=== PATIENT | female | born 1995 | race African-American/Black ===

== ENCOUNTER 2017-02-19 15:29 | Emergency (ER) | payer SELFPAY ==
[~2017-02-19] VITALS: Ht 154.9 cm; Wt 65.0 kg
[~2017-02-19 15:29] MED LIST: IPRA0.03
[2017-02-19 15:31] VITALS: BP 130/80; PULSE 66; RESP 20; TEMP 98.3; O2SAT 99
--- NOTE | 2017-02-19 15:35 | PD ---
Physical Exam Date Seen by Provider: Feb 19, 2017 Time Seen by Provider: 15:34 Narrative 21 yo female here for possible UTI. Having dysuria, polyuria and urgency for a couple of days. no other symptoms. No vaginal discharge or . Vitals are stable in triage. Awaiting bed placement. Data Data Last Documented VS Vital Signs Date Time Temp Pulse Resp B/P Pulse Ox O2 Delivery O2 Flow Rate FiO2 02/19/17 15:31 98.3 66 20 130/[address] [facility] Medical Record Reviewed: Yes Supervised Visit with [facility]: Rogerio Monroe Feb 19, 2017 15:35
[2017-02-19 16:38] LABS: BACTERIA, URINE OCC /hpf; BLOOD, URINE TRACE (NEG); COMMENT (UR) CULTURE INDICATED; CULTURE IF INDICATED CULTURE INDICATED; GLUCOSE,URINE NEG (NEG); KETONE, URINE NEG (NEG); MUCUS URINE FEW /lpf (OCC); NITRITE,URINE NEG (NEG); PH, URINE 6.5 (5.0-8.5); SQUAMOUS EPITHELIAL CELL URINE 14 /hpf (0-5); URINE COLOR YELLOW (YELLW/STRAW)
[2017-02-19] MEDS ORDERED: MACR100C2 PO (16:55)
--- NOTE | 2017-02-19 16:55 | PD ---
HPI Chief Complaint: Complaint Time Seen by Provider: 15:54 Travel History International Travel<30 days: No Contact w/Intl Traveler<30days: No Traveled to known affect area: No History of Present Illness HPI This is a 21-year-old woman who presents to the emergency department complaining of burning when she urinates and irritation for the past week or so. She initially a little bit of vaginal discharge and went to the health Department where she got tested for STDs and was reportedly negative. She still having symptoms and she thinks she may have a bladder infection so she came to the emergency department. She states she's had bladder infections before. Her last menstrual cycle was February 11. She is having a little bit of abdominal pain. She had some subjective chills a couple days ago. She is sexually active one male partner. He has no symptoms. History Past Medical History Medical History: Denies Significant Hx Influenza Vaccination: Yes : 2 Para: 2 Social History Alcohol Use: No Tobacco Use: No Allergies-Medications (Allergen,Severity, Reaction): Coded Allergies: No Known Allergies (Unverified , 06/18/16) Reported Meds & Prescriptions Reported Meds & Active Scripts Active Ipratropium [place] 0.03 % Spr 2 [place] NA TID PRN Review of Systems Except as stated in HPI: all other systems reviewed are Neg Physical Exam Narrative GENERAL: Well-appearing 21-year-old woman, no acute distress. SKIN: Focused skin assessment warm/dry. HEAD: Atraumatic. Normocephalic. CARDIOVASCULAR: Regular rate and rhythm. No murmur appreciated. RESPIRATORY: No accessory muscle use. Clear to auscultation. Breath sounds equal bilaterally. GASTROINTESTINAL: Abdomen soft, non-tender, nondistended. Hepatic and splenic margins not palpable. No CVA tenderness to percussion. MUSCULOSKELETAL: No obvious deformities. Data Data Last Documented VS Vital Signs Date Time Temp Pulse Resp B/P Pulse Ox O2 Delivery O2 Flow Rate FiO2 02/19/17 15:31 98.3 66 20 130/80 99 Room Air Orders Urinalysis - C+S If Indicated (02/19/17 15:35) Ed Urine Pregnancytest Poc (02/19/17 15:35) Urine Culture (02/19/17 15:20) Labs Laboratory Tests Test 02/19/17 15:20 Urine Color YELLOW Urine Turbidity HAZY Urine pH 6.5 Urine Specific [place] 1.012 Urine Protein TRACE mg/dL Urine Glucose (UA) NEG mg/dL Urine Ketones NEG mg/dL Urine Occult Blood TRACE Urine Nitrite NEG Urine Bilirubin NEG Urine Urobilinogen LESS THAN 2.0 MG/DL Urine Leukocyte Esterase LARGE Urine RBC 6 /hpf Urine WBC 19 /hpf Urine Squamous Epithelial 14 /hpf Cells Urine Amorphous Sediment RARE Urine Bacteria OCC /hpf Urine Mucus FEW /lpf Microscopic Urinalysis Comment CULTURE INDICATED MDM Medical Decision Making Medical Screen Exam Complete: Yes Emergency Medical Condition: Yes Interpretation(s) UA with pyuria Differential Diagnosis UTI, pyelonephritis, urethritis, cervicitis, other Narrative Course Medical decision making Is a 21-year-old woman who presents to the emergency department complaining of burning with urination. Workup for STDs was negative. Urinalysis shows pyuria. Suggest treatment for UTI. Diagnosis Primary Impression: UTI (urinary tract infection) Additional Instructions: Take antibiotics as prescribed. Follow-up with her primary doctor in 2-3 days. Return to the emergency department for any new or worsening symptoms. Med/Other Pt SpecificInfo: Prescription(s) given Scripts Nitrofurantoin Monohydrate Macrocrystals (Macrobid)100 Mg [id number] Mg PO BID 5 Days Ref 0 Prov:Hermelindo Wade MD 02/19/17 Disposition: 01 DISCHARGE HOME Condition: Stable Hermelindo Wade MD Feb 19, 2017 16:55
[2017-02-19] MEDS ORDERED: PHEN0.4T PO (16:58)
== END 2017-02-19 17:32 | disposition home or self-care (01) ==
LOC: NEPD 15:29
DX: N39.0 Urinary tract infection, site not specified (principal)
CPT/HCPCS: 81001; 84703; 87086; 99283

== ENCOUNTER 2018-01-02 09:44 | Emergency (ER) | payer OTHER ==
[~2018-01-02] VITALS: Ht 154.9 cm; Wt 54.5 kg
[~2018-01-02 09:44] MED LIST changes: +MACR100C2 PO; +PHEN0.4T PO
[2018-01-02 09:51] VITALS: BP 122/63; PULSE 78; RESP 18; TEMP 98.8; O2SAT 100
[2018-01-02] MEDS ORDERED: ISOT40CA5 PO (10:22)
[2018-01-02] MEDS ORDERED: LIDOCAINE 1%/EPINEPHrine 1:100,000 SOLN 20 ML VIAL INFIL ONE (11:00)
--- NOTE | 2018-01-02 11:45 | PD ---
HPI Chief Complaint: Skin Problem Time Seen by Provider: 10:36 Travel History International Travel<30 days: No Contact w/Intl Traveler<30days: No Traveled to known affect area: No History of Present Illness HPI 22-year-old female presents emergency department with pain to the right medial thumbnail. Patient states she had a hangnail that she tried to cut back yesterday and has gotten increasingly painful, swollen, and sore. There is no drainage or bleeding. Patient states pain is 8 out of 10. She denies any other symptoms. She has no known drug allergies. [facility] Past Medical History Medical History: Denies Significant Hx Immunizations Current: Yes Tetanus Vaccination: Unknown Influenza Vaccination: No ?: Not LMP: DECEMBER 12, 2017 : 2 Para: 2 Past Surgical History Other Surgery: Yes (lt nephrectomy as .) Social History Alcohol Use: No Tobacco Use: No Substance Use: No Allergies-Medications (Allergen,Severity, Reaction): Coded Allergies: No Known Allergies (Unverified Adverse Reaction, Unknown, 01/02/18) Reported Meds & Prescriptions Reported Meds & Active Scripts Active Reported Absorica (Isotretinoin) 40 Mg Cap 1 Cap PO DAILY Review of Systems Except as stated in HPI: all other systems reviewed are Neg General / Constitutional: No: Fever Eyes: No: Visual changes HENT: No: Headaches Cardiovascular: No: Chest Pain or Discomfort Respiratory: No: Shortness of Breath Gastrointestinal: No: Abdominal Pain Genitourinary: No: Dysuria Musculoskeletal: No: Pain Skin: Positive Lesions (See history of present illness), No Rash Neurologic: No: Weakness Psychiatric: No: Depression Endocrine: No: Polydipsia Hematologic/Lymphatic: No: Easy Bruising Physical Exam Narrative GENERAL: Patient is in no acute distress. SKIN: Warm and dry. Normal color. Normal turgor. Patient has small ingrown nail along the medial right thumbnail, with localized tenderness and proud flesh. No signs of cellulitis or abscess per HEAD: Atraumatic. Normocephalic. EYES: Pupils equal and round. No scleral icterus. No injection or drainage. ENT: No nasal bleeding or discharge. Mucous membranes pink and moist. Pharynx is clear. Airways patent. NECK: Trachea midline. Supple and nontender. CARDIOVASCULAR: Regular rate and rhythm. RESPIRATORY: No accessory muscle use. Clear to auscultation. Breath sounds equal bilaterally. MUSCULOSKELETAL: Extremities without clubbing, cyanosis, or edema. No obvious deformities. NEUROLOGICAL: Awake and alert. No obvious cranial nerve deficits. Motor grossly within normal limits. Five out of 5 muscle strength in the arms and legs. Normal speech. PSYCHIATRIC: Appropriate mood and affect; insight and judgment normal. Data Data Last Documented VS Vital Signs Date Time Temp Pulse Resp B/P (MAP) Pulse Ox O2 Delivery O2 Flow Rate FiO2 01/02/18 09:51 98.8 78 18 122/63 (82) 100 Orders Orders Lidocai-Epi 1%-1:100,000 Inj (Xylocaine- (01/02/18 11:00) MDM Medical Decision Making Medical Screen Exam Complete: Yes Emergency Medical Condition: Yes Differential Diagnosis Right thumb pain. Hangnail. Ingrown thumbnail. Narrative Course Digital block is placed to the right thumb with good anesthetic effect. Medial aspect of the thumb nail is cut down to the nail bed without difficulty. Sterile dressing is placed. Wound care is discussed with the patient. Patient is given ibuprofen 600 mg 3 times daily as needed pain #30 Patient is to follow-up as needed per Procedures Procedure Narrative Digital block is placed to the right thumb with good anesthetic effect. Medial aspect of the thumb nail is cut down to the nail bed without difficulty. Sterile dressing is placed. Wound care is discussed with the patient. Diagnosis Primary Impression: Ingrown thumb nail, right Patient Instructions: General Instructions, Ingrown Nail (ED), Partial Nail Avulsion for Ingrown Nail (DC) Additional Instructions: Medial aspect of the thumb nail is cut down to the nail bed without difficulty. Sterile dressing is placed. Wound care is discussed with the patient. Patient is given ibuprofen 600 mg 3 times daily as needed pain #30 Patient is to follow-up as needed per Med/Other Pt SpecificInfo: Prescription(s) given Disposition: 01 DISCHARGE HOME Condition: Stable Delbert Danielson January 02, 2018 11:45
[2018-01-02] MEDS ORDERED: IBUP-232 PO (11:46)
== END 2018-01-02 11:52 | disposition home or self-care (01) ==
LOC: NEPD 09:44
DX: L60.0 Ingrowing nail (principal)
CPT/HCPCS: 11750

== ENCOUNTER 2018-01-04 22:31 | Emergency (ER) | payer OTHER ==
[~2018-01-04] VITALS: Ht 154.9 cm; Wt 55.0 kg
[~2018-01-04 22:31] MED LIST changes: +IBUP-232 PO; +ISOT40CA5 PO
[2018-01-04 22:54] VITALS: BP 117/61; PULSE 70; RESP 18; TEMP 98.3; O2SAT 100
--- NOTE | 2018-01-04 23:03 | PD ---
HPI Chief Complaint: Injury Time Seen by Provider: 23:02 Travel History International Travel<30 days: No Contact w/Intl Traveler<30days: No Traveled to known affect area: No History of Present Illness HPI 22-year-old female came to the emergency room with history of right thumb pain after she had a procedure for ingrown fingernail done 2 days ago. Patient says the pain has been significant and feels sharp inside. Vital signs are stable. She was not sent home on any antibiotics last time. Patient has not been soaking the finger in warm water either. [facility] Past Medical History Narrative Medical List of her past medical, surgical, social and family history is reviewed from the nursing note. Medical History: Denies Significant Hx Diminished Hearing: No Immunizations Current: Yes Tetanus Vaccination: < 5 Years Influenza Vaccination: No ?: Not LMP: 12/12/2017 : 2 Para: 2 Past Surgical History Other Surgery: Yes (lt nephrectomy as .) Social History Alcohol Use: No Tobacco Use: No Substance Use: No Allergies-Medications (Allergen,Severity, Reaction): Coded Allergies: No Known Allergies (Unverified Adverse Reaction, Unknown, 01/04/18) Comments No known drug allergies. Reported Meds & Prescriptions Reported Meds & Active Scripts Active Bactrim DS (Sulfamethoxazole-Trimethoprim) 800-160 Mg Tab 1 Tab PO BID Ibuprofen 600 Mg Tab 600 Mg PO Q8H PRN Reported Absorica (Isotretinoin) 40 Mg Cap 1 Cap PO DAILY Narrative Medication List of her home medications reviewed from the nursing note. Review of Systems Except as stated in HPI: all other systems reviewed are Neg Musculoskeletal: Positive: Pain Physical Exam Narrative GENERAL: Awake, alert, no obvious to SKIN: Focused skin assessment warm/dry. HEAD: Atraumatic. Normocephalic. EYES: Pupils equal and round. No scleral icterus. No injection or drainage. ENT: No nasal bleeding or discharge. Mucous membranes pink and moist. NECK: Trachea midline. No JVD. CARDIOVASCULAR: Regular rate and rhythm. No murmur appreciated. RESPIRATORY: No accessory muscle use. Clear to auscultation. Breath sounds equal bilaterally. GASTROINTESTINAL: Abdomen soft, non-tender, nondistended. Hepatic and splenic margins not palpable. MUSCULOSKELETAL: No obvious deformities. No clubbing. No cyanosis. No edema. Right thumb radial aspect a wedge of fingernail is missing. There is tenderness in the area on palpation. Slight nailbed granuloma is noticed. No purulent discharge NEUROLOGICAL: Awake and alert. No obvious cranial nerve deficits. Motor grossly within normal limits. Normal speech. PSYCHIATRIC: Appropriate mood and affect; insight and judgment normal. Data Data Last Documented VS Vital Signs Date Time Temp Pulse Resp B/P (MAP) Pulse Ox O2 Delivery O2 Flow Rate FiO2 01/04/18 22:54 98.3 70 18 117/61 (79) 100 Orders Orders Ed Discharge Order (01/04/18 23:07) MDM Medical Decision Making Medical Screen Exam Complete: Yes Emergency Medical Condition: Yes Medical Record Reviewed: Yes Differential Diagnosis Cellulitis Narrative Course 11:30 PM patient will be discharged home on antibiotic and discharge instructions that have already discussed with her in person as well. Patient understands Procedures EKG Prior to Arrival: No Diagnosis Primary Impression: Cellulitis Qualified Codes: L03.011 - Cellulitis of right finger Referrals: [facility] Departure Forms: Tests/Procedures, Work Release Special Instructions: No typing for 24 hours due to the pain from finger infection Additional Instructions: Soak the thumb in lukewarm water with some Epsom salt 4-5 times a day. Take the antibiotic as per the prescription direction. Take Motrin/Advil/ibuprofen for pain relief. These medications are available [id number]. Med/Other Pt SpecificInfo: Prescription(s) given Scripts Sulfamethoxazole-Trimethoprim (Bactrim DS) 800-160 Mg Tab 1 TAB PO BID for Infection, #14 TAB 0 Refills Prov: Loly Rainey MD 01/04/18 Disposition: 01 DISCHARGE HOME Condition: Stable Loly Rainey MD January 04, 2018 23:02
[2018-01-04] MEDS ORDERED: BACT800T5 PO (23:08)
== END 2018-01-04 23:26 | disposition home or self-care (01) ==
LOC: NEPD 22:31
DX: L03.011 Cellulitis of right finger (principal); Z79.899 Other long term (current) drug therapy
CPT/HCPCS: 99283